=== PATIENT | male | born 1965 | race Caucasian/White ===

== ENCOUNTER 2022-01-31 14:49 | Emergency (ER) | payer OTHER ==
[~2022-01-31] VITALS: Ht 177.8 cm; Wt 84.4 kg
--- NOTE | 2022-01-31 15:43 | NUR ---
DR RANGEL AT BEDSIDE FOR EVALUATION
[2022-01-31 16:12] LABS: HEMATOCRIT 42.1 % (36.7-47.1); MEAN CORPUSCULAR HEMOGLOBIN 29.8 uug (23.8-33.4); MEAN CORPUSCULAR VOLUME 89.2 fL (73.0-96.2); PLATELET COUNT (AUTO) 228 K/uL (152-348)
[2022-01-31 16:25] LABS: CREATININE 1.1 mg/dL (0.6-1.3)
[2022-01-31 16:31] LABS: BILIRUBIN,TOTAL 0.5 mg/dL (0.2-1.0); TOTAL PROTEIN, SERUM 7.4 g/dL (6.4-8.2)
[2022-01-31 17:51] VITALS: BP 141/90
--- NOTE | 2022-01-31 18:19 | NUR ---
Patient discharged to home in stable condition. Written and verbal after care instructions given. Patient verbalizes understanding of instructions. Stressed follow up or return to ER for worsening s/s.
== END 2022-01-31 18:20 | disposition home or self-care (01) ==
LOC: ER 14:49
DX: R47.1 Dysarthria and anarthria (principal); G31.84 Mild cognitive impairment of uncertain or unknown etiology; R26.89 Other abnormalities of gait and mobility; I49.3 Ventricular premature depolarization
CPT/HCPCS: 36415; 70450; 71045; 83690; 85025; 93005; A4663